=== PATIENT | female | born 1980 | race African-American/Black ===

== ENCOUNTER 2017-01-07 13:56 | Emergency (ER) | payer MEDICAID, OTHER ==
[~2017-01-07] VITALS: Ht 149.9 cm; Wt 138.0 kg
[~2017-01-07 13:56] MED LIST: MECL25CH PO; ZOFR4TAB3 SL
[2017-01-07 13:58] VITALS: BP 164/103; PULSE 78; RESP 16; TEMP 97.8; O2SAT 100
--- NOTE | 2017-01-07 14:27 | PD ---
HPI Chief Complaint: GI Complaint Time Seen by Provider: 14:07 Travel History International Travel<30 days: No Contact w/Intl Traveler<30days: No Traveled to known affect area: No History of Present Illness HPI Patient presents with complaints of sacral pain. Reports a fall to her buttocks one month ago however she has neglected to have it evaluated. Aggravated by sitting. Denies any gait abnormalities. Denies any nausea vomiting diarrhea or fever. PFSH Past Medical History Diminished Hearing: No Migraines: Yes Influenza Vaccination: No ?: Not : 6 Para: 3 Miscarriage: 2 : 1 Ectopic : No Ovarian Cysts: No Tubal Ligation: Yes Past Surgical History Section: Yes (X2) Gynecologic Surgery: Yes Hysterectomy: No Social History Alcohol Use: No Tobacco Use: No Substance Use: Yes (marijuana) Allergies-Medications (Allergen,Severity, Reaction): Coded Allergies: Aspirin (Verified Adverse Reaction, Severe, ABD CRAMPING, 01/07/17) Reported Meds & Prescriptions Reported Meds & Active Scripts Active Review of Systems General / Constitutional: No: Fever Eyes: No: Visual changes HENT: No: Headaches Cardiovascular: No: Chest Pain or Discomfort Respiratory: No: Shortness of Breath Gastrointestinal: No: Abdominal Pain Genitourinary: No: Dysuria Musculoskeletal: No: Pain Skin: No Rash Neurologic: No: Weakness Psychiatric: No: Depression Endocrine: No: Polydipsia Hematologic/Lymphatic: No: Easy Bruising Physical Exam Narrative GENERAL: Well-nourished, well-developed patient. SKIN: Focused skin assessment warm/dry. HEAD: Normocephalic. EYES: No scleral icterus. No injection or drainage. NECK: Supple, trachea midline. No JVD or lymphadenopathy. CARDIOVASCULAR: Regular rate and rhythm without murmurs, gallops, or rubs. RESPIRATORY: Breath sounds equal bilaterally. No accessory muscle use. GASTROINTESTINAL: Abdomen soft, non-tender, nondistended. MUSCULOSKELETAL: No cyanosis, or edema. BACK: Nontender without obvious deformity. No CVA tenderness. Examination lumbar sacral region reveals no erythema edema or ecchymosis positive midline tenderness Data Data Last Documented VS Vital Signs Date Time Temp Pulse Resp B/P Pulse Ox O2 Delivery O2 Flow Rate FiO2 01/07/17 13:58 97.8 78 16 164/103 100 Orders Sacrum And Coccyx (01/07/17 ) [facility] Medical Decision Making Medical Screen Exam Complete: Yes Emergency Medical Condition: Yes Differential Diagnosis Lumbar sacral strain, lumbar sacral contusion, lumbar sacral fracture Narrative Course Assessment and plan discussed with patient at bedside. Last 72 hours Impressions Sacrum and Coccyx X-Ray 01/07/17 0000 Signed Impressions: Service Date/Time: Saturday, January 07, 2017 14:18 - CONCLUSION: Unremarkable examination of the sacrum and coccyx. Dudley Vasquez MD Diagnosis Primary Impression: Sacral contusion Qualified Code: S30.0XXA - Sacral contusion, initial encounter Patient Instructions: General Instructions Additional Instructions: Encouraged nonsteroidal anti-inflammatories or Tylenol for pain. Consider a doughnut for sitting. Encouraged to follow-up with her PCP symptoms do not improve Med/Other Pt SpecificInfo: No Meds Exist/No RX given Disposition: 01 DISCHARGE HOME Condition: Good Max Singh MD January 07, 2017 14:27
--- NOTE | 2017-01-07 14:36 | RADHPO ---
EXAM DATE/TIME: 01/07/2017 14:18 [place] COMPARISON: No previous studies available for comparison. INDICATIONS : Fell 1 month ago, has pain sacrum and coccyx area MEDICAL HISTORY : None. SURGICAL HISTORY : None. ENCOUNTER: Initial ACUITY: 1 month PAIN SCORE: 7/10 LOCATION: Bilateral Sacrum and coccyx area FINDINGS: Two-view examination of the sacrum and coccyx demonstrates no evidence of fracture or malalignment. The sacral ala and foramina appear symmetric and intact. The coccyx appears unremarkable. The preve rtebral soft tissues are within normal limits. CONCLUSION: Unremarkable examination of the sacrum and coccyx. Dudley Vasquez MD on January 07, 2017 at 14:34 Board Certified Radiologist. This report was verified electronically.
== END 2017-01-07 15:00 | disposition home or self-care (01) ==
LOC: PHED 13:56
DX: S30.0XXA Contusion of lower back and pelvis, initial encounter (principal); W19.XXXA Unspecified fall, initial encounter; Y93.9 Activity, unspecified; Y92.9 Unspecified place or not applicable; Y99.9 Unspecified external cause status
CPT/HCPCS: 72220; 99283

== ENCOUNTER 2017-10-13 15:54 | Emergency (ER) | payer SELFPAY ==
[~2017-10-13] VITALS: Ht 149.9 cm; Wt 121.0 kg
[2017-10-13 16:00] VITALS: BP 174/86; PULSE 69; RESP 16; TEMP 97.8; O2SAT 99
[2017-10-13 16:48] LABS: BILIRUBIN, URINE NEG (NEG); BLOOD, URINE MOD (NEG); GLUCOSE,URINE NEG (NEG); KETONE, URINE NEG (NEG); NITRITE,URINE NEG (NEG); URINE LEUKOCYTE ESTERASE LARGE (NEG)
[2017-10-13 16:55] LABS: URINE COLOR U (YELLW/STRAW)
[2017-10-13 16:59] LABS: TRICHOMONAS, URINE FEW
[2017-10-13] MEDS ORDERED: MACR100C2 PO (17:58)
[2017-10-13] MEDS ORDERED: ROBA750T PO (17:58)
--- NOTE | 2017-10-13 17:59 | PD ---
HPI Chief Complaint: Musculoskeletal Complaint Time Seen by Provider: 17:43 Travel History International Travel<30 days: No Contact w/Intl Traveler<30days: No Traveled to known affect area: No History of Present Illness HPI This is a 37-year-old female here with 2 chief complaints. She is complaining of left lateral leg pain that originates in the hip that radiates down to the ankle. She reports this is similar to her previous sciatica. She is also reporting urinary frequency and dysuria 2 days. No fever chills. No paresthesias or weakness of the extremity. No saddle anesthesia. Severity is mild. Aggravated alleviating factors. PFSH Past Medical History Medical History: Denies Significant Hx Diminished Hearing: No Migraines: Yes Influenza Vaccination: No ?: Not LMP: 10/02/17 : 6 Para: 3 Miscarriage: 2 : 1 Ectopic : No Ovarian Cysts: No Tubal Ligation: Yes Past Surgical History Section: Yes (X2) Gynecologic Surgery: Yes Hysterectomy: No Social History Alcohol Use: No Tobacco Use: No Substance Use: Yes (marijuana) Allergies-Medications (Allergen,Severity, Reaction): Coded Allergies: aspirin (Unverified Adverse Reaction, Severe, ABD CRAMPING, 10/13/17) Reported Meds & Prescriptions Reported Meds & Active Scripts Active Macrobid (Nitrofurantoin Monoh/Nitrofur Macro) 100 Mg Cap 100 Mg PO BID 5 Days Review of Systems Except as stated in HPI: all other systems reviewed are Neg General / Constitutional: No: Fever Eyes: No: Visual changes HENT: No: Headaches Respiratory: No: Shortness of Breath Gastrointestinal: No: Abdominal Pain Genitourinary: Positive: Urgency, Frequency, Dysuria Physical Exam Narrative GENERAL: Alert and well-appearing 37-year-old female SKIN: Warm and dry. HEAD: Atraumatic. Normocephalic. EYES: . No injection or drainage. NECK: Supple CARDIOVASCULAR: Regular rate and rhythm. RESPIRATORY: No accessory muscle use. Clear to auscultation. Breath sounds equal bilaterally. GASTROINTESTINAL: Abdomen soft, non-tender, nondistended. MUSCULOSKELETAL: Extremities without clubbing, cyanosis, or edema. No obvious deformities. Mild tenderness to the lateral thigh extending down to the ankle. No deformity, swelling, warmth or erythema. She is able to flex and externally rotate the hip. Flex and extend the knee and ankle. Normal strength and sensation in the extremities. 2+ distal pulses. Brisk cap refill. BACK: No CVA tenderness. No rash. No point tenderness on palpation of the spine. NEUROLOGICAL: Awake and alert. No obvious cranial nerve deficits. Motor grossly within normal limits. Five out of 5 muscle strength in the arms and legs. Normal speech. PSYCHIATRIC: Appropriate mood and affect; insight and judgment normal. Data Data Last Documented VS Orders Orders Urinalysis - C+S If Indicated (10/13/17 16:04) Ed Urine Pregnancytest Poc (10/13/17 16:04) Urine Culture (10/13/17 16:40) Metronidazole (Flagyl) (10/13/17 18:15) Ed Discharge Order (10/13/17 18:05) Labs Laboratory Tests Test 10/13/17 16:40 Urine Collection Type CLEAN CATCH Urine Color U Urine Turbidity SLIGHT Urine pH 5.0 Urine Specific [place] 1.027 Urine Protein NEG mg/dL Urine Glucose (UA) NEG mg/dL Urine Ketones NEG mg/dL Urine Occult Blood MOD Urine Nitrite NEG Urine Bilirubin NEG Urine Leukocyte Esterase LARGE Urine RBC 25-49 /hpf Urine WBC 50-99 /hpf Urine Squamous Epithelial Cells 6-8 /hpf Urine Trichomonas FEW Microscopic Urinalysis Comment CULTURE INDICATED Urine Collection Time 16:40 [facility] Medical Decision Making Medical Screen Exam Complete: Yes Emergency Medical Condition: Yes Interpretation(s) UA: Moderate blood, large leukocyte Estrace, RBC 25-49, [id number], few Trichomonas Differential Diagnosis Sciatica, lumbar radiculopathy, UTI Narrative Course 37-year-old female here with nontraumatic left leg pain similar to previous sciatica. Pain is localized to the left buttocks and lateral thigh. I do not suspect DVT. She also has UTI like symptoms 2 days. She is a normal neurologic exam. UA is suggestive of infection and she'll be treated for that sciatica and UTI. Diagnosis Primary Impression: UTI (urinary tract infection) Qualified Codes: N39.0 - Urinary tract infection, site not specified; R31.9 - Hematuria, unspecified Additional Impressions: Trichomonas infection Sciatica Qualified Codes: M54.32 - Sciatica, left side Referrals: Primary Care Physician Departure Forms: Tests/Procedures, Work Release Enter return to work date: Oct 16, 2017 Additional Instructions: Tylenol and ibuprofen for leg pain. Ice and/or heat. Avoid heavy lifting, prolonged standing for the next several days. You were treated for Trichomonas today all partners need to be treated. Follow-up with her primary doctor Scripts Nitrofurantoin Monohydrate Macrocrystals (Macrobid) 100 Mg Cap 100 MG PO BID for Infection for 5 Days, #10 CAP 0 Refills Prov: Candy Khanna 10/13/17 Disposition: DISCHARGE HOME Condition: Stable Candy Khanna Oct 13, 2017 17:58
[2017-10-13] MEDS ORDERED: metroNIDAZOLE 500 MG TAB PO ONE (18:15)
== END 2017-10-13 18:12 | disposition home or self-care (01) ==
LOC: PHED 15:54 → PHEFT 18:12
DX: N39.0 Urinary tract infection, site not specified (principal); R31.9 Hematuria, unspecified; A59.9 Trichomoniasis, unspecified; M54.32 Sciatica, left side
CPT/HCPCS: 81001; 84703; 87086; 99283